=== PATIENT | male | born 1970 | race Caucasian/White ===

== ENCOUNTER → 2020-04-14 14:07 | Outpatient (CLI) | payer OTHER, SELFPAY ==
[2014-08-22 06:36] VITALS: BMI 31.9
[2020-04-18 03:06] LABS: QNTFERON TB Mitogen Value > 10.00 IU/mL (.); QNTFERON TB Nil Value 0.03 IU/mL (.); QNTFERON TB1+ Ag Value 0.05 IU/mL (.); QNTFERON TB2+ Ag Value 0.03 IU/mL (.)
[2020-04-18 10:32] LABS: QNTIFERON TB Positive Criteria Negative (Negative)
== END ==
PROVIDERS: PCP Student in an Organized Health Care Education/Training Program; Referring Provider Dermatology; Visit Provider Dermatology
DX: L40.0 Psoriasis vulgaris (principal); Z79.899 Other long term (current) drug therapy
CPT/HCPCS: 36415; 86480

== ENCOUNTER 2021-01-20 13:15 | Emergency (ER) | payer OTHER, SELFPAY ==
[2021-01-20 13:16] VITALS: BP 122/87; PULSE 78; RESP 20; TEMP 37.2; O2SAT 96; BMI 34.9
--- NOTE | 2021-01-20 14:14 | EDS_ITS ---
HPI History of Present Illness Chief Complaint: Fatigue Informant: patient and spouse/S.O. Onset/Context/Timing Onset: Days (8) Context: Gradual Onset Timing: Continuous Quality: fatigue, achy Location: all over Current Severity: Severe Maximum Severity: Severe Worsened by: nothing Relieved by: nothing Associated Symptoms Associated Symptoms: fevers, chills, n/v/d Narrative Narrative: Patient has had Covid for 8 days now, he had a positive test at the [facility], he was unvaccinated and takes medications for hypertension and psoriasis he gets monthly biologic(? - monoclonal antibody IL- 23 antagonist) injection. He has been feeling poorly, not dyspneic but he had vomiting diarrhea until about 3 days ago and ever since then he has been so nauseated he is having trouble eating and drinking. Every time he sits up he feels nauseated like a second pass out. Occasional mild abdominal aching but no major pains or chest discomfort. [facility] Medical History (Updated 01/20/21 @ 16:[address] Juan Wagner MD) Hypertension Psoriasis Home Medications aspirin 81 mg PO DAILY 01/20/21 [History Last Taken Unknown] guselkumab [Tremfya] 100 mg SUBCUT 01/20/21 [History Last Taken Unknown] lisinopril 20 mg PO DAILY 01/20/21 [History Last Taken Unknown] ondansetron 8 mg PO Q8H PRN PRN #20 tab 01/20/21 [Rx Last Taken Unknown] Allergy/AdvReac Type Severity Reaction Status Date / Time No Known Allergies Allergy Verified 01/20/21 13:18 Surgical History (Updated 01/20/21 @ 15:03 by Ted Langford) History of appendectomy History of hernia repair Social History Smoking Status: Former smoker ROS ROS ED Constitutional Constitutional ED: Reports body ache(s), chills, fatigue, fever(s), headache(s) and malaise Eyes Eyes: Denies change in vision or diplopia ENT ENT ED: Denies rhinorrhea or sore throat Cardiovascular Cardiovascular: Denies chest pain or palpitations Respiratory/Chest Respiratory/Chest: Reports cough; Denies dyspnea Gastrointestinal Gastrointestinal: Reports as per HPI, abdominal pain, diarrhea, nausea and vomiting Genitourinary Genitourinary ED: Denies dysuria or hematuria Musculoskeletal Musculoskeletal: Reports myalgias; Denies back pain or neck pain Integumentary Denies abscess or rash Neurologic Neurologic: Reports headache(s); Denies paresthesias or weakness Psychiatric Psychiatric: Denies anxiety or suicidal thoughts EXAM Physical Exam Const Vital Signs: 01/20/21 13:16 01/20/21 14:55 01/20/21 15:08 Temperature 98.9 F 100.0 F H Temperature Source Temporal Oral Pulse Rate 78 Respiratory Rate 20 H Respiratory Effort Normal Blood Pressure 122/87 H Blood Pressure Mean 98 Pulse Ox 96 Oxygen Delivery Method Room Air Positive well nourished and well developed Constitutional Narrative: Appears malaised but no distress General Appearance ED: well developed and NAD HEENT Reports moist mucous membranes normocephalic and atraumatic Eyes PERRL and EOMs intact bilaterally Neck full ROM and supple Resp normal respiratory effort and clear to auscultation bilaterally Cardio regular rate, regular rhythm and no murmurs Rate: Negative for tachycardic GI non-tender and non-distended Auscultation: normoactive bowel sounds Palpation: soft Back/Spine no CVA tenderness General Back: other FROM Extremity normal to inspection and no calf tenderness General Extremety ED: Negative for edema, pulses abnormal or tenderness General Extremity: Negative for edema or pulses abnormal Neuro oriented x3, CN's II-XII intact bilaterally and no sensory deficits noted Sensorium / Orientation: awake and alert Motor Exam: strength 5/5 throughout Skin no rashes or lesions noted and no wounds MDM MDM MDM Narrative Medical decision making narrative: Electrolytes obtained, his creatinine is up a little and there is an elevated BUN-creatinine ratio consistent with mild dehydration, but no electrolytes that require replacement at this time. He was given a liter of fluids, as well as Toradol and Zofran. He did develop a low- grade temperature so he was given Tylenol for that as well which he tolerated orally. This patient does meet criteria for the monoclonal antibody infusion, so he was referred to that, but his oxygenation is excellent and at this time he meets no criteria for any other treatment or hospitalization. Discharged home with prescription for Zofran and other instructions. Lab Data Attestation: I reviewed the patient's lab results. Labs: Laboratory Results - last 24 hr 01/20/21 15:12 Sodium 137 Potassium 4.7 Chloride 104 Carbon Dioxide 29.0 Anion Gap 4 L BUN 19 H Creatinine 1.39 H Estim Creat Clear Calc 62.88 Est GFR (MDRD) Af Amer 70 Est GFR (MDRD) Non-Af 58 L BUN/Creatinine Ratio 13.7 Glucose 96 Calcium 8.8 Discharge Plan Triage Chief Complaint: Fatigue ED Provider: Juan Wagner Dx/Rx/DC Orders Clinical Impression: COVID-19, Dehydration, mild Instructions: Coronavirus Disease 2019 (COVID-19): Caring for Yourself or Others, ED - COVID Monoclonal AB Infusion ... Prescriptions: New ondansetron [ondansetron] 4 MG tablet 8 mg PO Q8H PRN PRN (Reason: Nausea) Qty: 20 RF: 0 No Action lisinopril 20 mg tablet 20 mg PO DAILY RF: 0 aspirin 81 mg Tablet 81 mg PO DAILY RF: 0 Tremfya 100 mg/mL syringe 100 mg SUBCUT RF: 0 Other Ambulatory Orders: COVID Outpatient Monoclonal Antibody Referral (Routine) Location: None Selected Ordered By: Dr. Juan Wagner Primary Care Provider: Avinash Smith Referrals: Avinash Smith DO [Primary Care Provider] - As Needed Disposition Disposition: Home, Self Care
[2021-01-20 14:55] VITALS: TEMP 37.8
[2021-01-20] MEDS: Ketorolac 30 MG/ML Syringe IV (15:06)
[2021-01-20] MEDS: 0.9% Normal Saline 1,000 ML 999 ML IV (15:06)
[2021-01-20] MEDS: Ondansetron 4 MG/2 ML Vial IV (15:07)
[2021-01-20 15:33] LABS: Anion Gap 4 (5-15); BUN 19 mg/dL (7-18); BUN/Creat Ratio 13.7 RATIO (10-20); Calcium,Total 8.8 mg/dL (8.5-10.1); Chloride 104 mmol/L (98-107); Creatinine, Serum 1.39 mg/dL (0.70-1.30); EST Glomerular Filtration Rate 58 mL/min (>60); Est Glom Filt Rate - Afr Amer 70 mL/min (>60); Estimated Creatinine Clearance 62.88 ml/min; Glucose 96 mg/dL (74-106); Potassium 4.7 mmol/L (3.5-5.1); Sodium Level 137 mmol/L (136-145)
[2021-01-20] MEDS: Acetaminophen 500 MG Tablet 1000 MG PO (16:10)
[2021-01-20 16:34] VITALS: BP 143/74; PULSE 69; RESP 16; O2SAT 95
== END 2021-01-20 16:35 | disposition home or self-care (01) ==
PROVIDERS: Emergency Provider Emergency Medicine; PCP Student in an Organized Health Care Education/Training Program
DX: U07.1 COVID-19 (principal); E86.0 Dehydration; I10 Essential (primary) hypertension; L40.9 Psoriasis, unspecified; Z79.82 Long term (current) use of aspirin; Z79.899 Other long term (current) drug therapy; Z87.891 Personal history of nicotine dependence
CPT/HCPCS: 80048; 96361; 96374; 96375; 99283; J7030; A4216; J2405

== ENCOUNTER 2021-01-21 17:43 | Outpatient (CLI) | payer OTHER, SELFPAY ==
[2021-01-21] MEDS: 0.9% Saline Lock 10 ML Syringe IV (17:56)
[2021-01-21 17:59] VITALS: BP 122/75; PULSE 68; RESP 16; TEMP 36.9; O2SAT 94; BMI 34.2
[2021-01-21 18:44] VITALS: BP 125/74; PULSE 60; RESP 18; TEMP 37.1; O2SAT 95
[2021-01-21 19:44] VITALS: BP 131/76; PULSE 59; RESP 16; TEMP 37.1; O2SAT 94
== END 2021-01-21 19:45 | disposition home or self-care (01) ==
LOC: ICUOUT 17:44 → MS2 17:44
PROVIDERS: PCP Student in an Organized Health Care Education/Training Program; Referring Provider Nurse Practitioner Acute Care; Visit Provider Nurse Practitioner Acute Care
DX: U07.1 COVID-19 (principal)
CPT/HCPCS: J7050; M0243; A4216; Q0244

== ENCOUNTER → 2021-04-01 13:32 | Outpatient (CLI) | payer OTHER, SELFPAY ==
[2021-04-01 16:06] LABS: Anion Gap 6 (5-15); BUN 16 mg/dL (7-18); BUN/Creat Ratio 14.3 RATIO (10-20); Calcium,Total 9.1 mg/dL (8.5-10.1); Chloride 107 mmol/L (98-107); Creatinine, Serum 1.12 mg/dL (0.70-1.30); EST Glomerular Filtration Rate 74 mL/min (>60); Est Glom Filt Rate - Afr Amer 90 mL/min (>60); Glucose 105 mg/dL (74-106); Potassium 3.8 mmol/L (3.5-5.1); Sodium Level 138 mmol/L (136-145)
[2021-04-02 08:51] LABS: Hepatitis B Surface Antibody Non-Reactive; Hepatitis B Surface Antigen Non-Reactive (Nonreactive); Hepatitis C Antibody Non-Reactive (Nonreactive)
[2021-04-08 00:07] LABS: QNTFERON TB Mitogen Value > 10.00 IU/mL (.); QNTFERON TB Nil Value 0.03 IU/mL (.); QNTFERON TB1+ Ag Value 0.04 IU/mL (.); QNTFERON TB2+ Ag Value 0.04 IU/mL (.)
[2021-04-08 17:01] LABS: Hepatitis B Core Ab Total Negative (Negative); QNTIFERON TB Positive Criteria Negative (Negative)
== END ==
PROVIDERS: PCP Student in an Organized Health Care Education/Training Program; Referring Provider Physician Assistant; Visit Provider Physician Assistant
DX: L40.0 Psoriasis vulgaris (principal); Z79.899 Other long term (current) drug therapy
CPT/HCPCS: 36415; 80048; 86480; 86704; 86706; 86803; 87340

== ENCOUNTER → 2022-06-10 | Outpatient (CLI) | payer BC, SELFPAY ==
[2022-06-10 10:14] LABS: Absolute Lymphocyte Count 2.22 X10^3/uL (0.83-4.51); Absolute Neutrophil Count 3.3 X10^3/uL (2.0-7.7); Basophil# 0.04 X10^3/uL; Basophil% 0.7 % (0-1); Eosinophil# 0.07 X10^3/uL; Eosinophils% 1.2 % (0-5); Hematocrit 49.8 % (40-54); Hemoglobin 16.5 g/dL (13.0-16.5); Lymphocyte # 2.22 X10^3/ul (0.83-4.51); Lymphocyte % 37.1 % (19-41); Mean Corp Hgb Conc 33.1 g/dL (32-36); Mean Corpuscular Volume 87.7 fL (80-94); Mean Platelet Vol. 11.2 fl (6.2-12.0); Monocyte# 0.35 X10^3/uL; Monocyte% 5.9 % (0-10); NRBC Flagged by Analyzer 0 % (0-5); Neutrophil # 3.29 X10^3/uL (2.7-7.7); Neutrophil % 54.9 % (47-70); Platelet Count 311 K/mm3 (150-450); RBC Distribution Width SD 41.8 fl (35.1-43.9); Red Blood Count 5.68 M/mm3 (4.6-6.2)
[2022-06-10 10:36] LABS: ALB/GLOB Ratio 1.2 RATIO (0.9-2.4); AST(SGOT) 21 U/L (15-37); Alanine Aminotransfer ALT/SGPT 37 U/L (16-61); Albumin, Serum 4.2 g/dL (3.2-5.0); Alkaline Phosphatase 80 U/L (45-117); Anion Gap 5 (5-15); BUN 17 mg/dL (7-18); Calcium,Total 9.1 mg/dL (8.5-10.1); Chloride 110 mmol/L (98-107); Cholesterol 237 mg/dL (200); Creatinine, Serum 1.13 mg/dL (0.70-1.30); EST Glomerular Filtration Rate 73 mL/min (>60); Est Glom Filt Rate - Afr Amer 89 mL/min (>60); Globulin 3.6 g/dL (2.2-4.2); Glucose 104 mg/dL (74-106); High Density Lipoprotein 49 mg/dL; Potassium 4.7 mmol/L (3.5-5.1); Protein, Total 7.8 g/dL (6.4-8.2); Sodium Level 141 mmol/L (136-145); Triglycerides 119 mg/dL; Very Low Density Lipoprotein 24 mg/dL (5-40)
[2022-06-10 11:09] LABS: Hepatitis B Surface Antibody Non-Reactive; Hepatitis B Surface Antigen Non-Reactive (Nonreactive); Hepatitis C Antibody Non-Reactive (Nonreactive)
[2022-06-13 13:07] LABS: LDL, Direct 120295 164 mg/dL (0-99); QNTFERON TB Mitogen Value > 10.00 IU/mL (.); QNTFERON TB Nil Value 0.02 IU/mL (.); QNTFERON TB1+ Ag Value 0.01 IU/mL (.); QNTFERON TB2+ Ag Value 0.01 IU/mL (.)
[2022-06-13 22:11] LABS: Hepatitis B Core Ab Total Negative (Negative)
[2022-06-13 22:12] LABS: QNTIFERON TB Positive Criteria Negative (Negative)
== END | disposition home or self-care (01) ==
LOC: MTLAB 08:55
PROVIDERS: PCP Student in an Organized Health Care Education/Training Program; Referring Provider Physician Assistant; Visit Provider Physician Assistant
DX: L40.0 Psoriasis vulgaris (principal); L40.59 Other psoriatic arthropathy; Z79.899 Other long term (current) drug therapy
CPT/HCPCS: 36415; 80053; 80061; 83721; 85025; 86480; 86704; 86706; 86803; 87340

== ENCOUNTER → 2023-03-21 | Outpatient (CLI) | payer BC, SELFPAY ==
[2023-03-23 17:07] LABS: QNTFERON TB Mitogen Value > 10.00 IU/mL (.); QNTFERON TB Nil Value 0.02 IU/mL (.); QNTFERON TB1+ Ag Value 0.03 IU/mL (.); QNTFERON TB2+ Ag Value 0.02 IU/mL (.); QNTIFERON TB Positive Criteria Negative (Negative)
== END | disposition home or self-care (01) ==
PROVIDERS: PCP Student in an Organized Health Care Education/Training Program; Referring Provider Dermatology; Visit Provider Dermatology
DX: L40.0 Psoriasis vulgaris (principal); Z79.899 Other long term (current) drug therapy
CPT/HCPCS: 36415; 86480

== ENCOUNTER → 2024-02-19 | Outpatient (CLI) | payer BC, SELFPAY ==
[2024-02-21 21:07] LABS: QNTFERON TB Mitogen Value > 10.00 IU/mL (.); QNTFERON TB Nil Value 0.01 IU/mL (.); QNTFERON TB1+ Ag Value 0.01 IU/mL (.); QNTFERON TB2+ Ag Value 0.04 IU/mL (.); QNTIFERON TB Positive Criteria Negative (Negative)
== END | disposition home or self-care (01) ==
PROVIDERS: PCP Student in an Organized Health Care Education/Training Program; Referring Provider Physician Assistant; Visit Provider Physician Assistant
DX: L40.0 Psoriasis vulgaris (principal); L40.59 Other psoriatic arthropathy; Z79.899 Other long term (current) drug therapy
CPT/HCPCS: 36415; 86480